=== PATIENT | male | born 1935 | race American Indian/Alaskan Native ===

== ENCOUNTER 2019-01-06 08:32 | Outpatient (CLI) | payer MEDICARE ==
[2019-01-06 09:39] LABS: Blood Urea Nitrogen 23 mg/dL (9-20)
--- NOTE | 2019-01-06 17:12 | Cat Scan Report ---
PROCEDURE: CT ABDOMEN PELVIS WO/W CON TECHNIQUE: Abdomen and pelvis with intravenous contrast HISTORY: PROSTATE CANCER COMPARISONS: FINDINGS: Few tiny calcified granuloma noted at the lung bases. No focal abnormalities seen within the liver parenchyma. No peripancreatic inflammatory changes are observed. Spleen is normal in size acute scattered calcifi cations noted. Kidneys demonstrate symmetric contrast enhancement. The adrenal glands are unremarkable. Abdominal aorta is normal in caliber. Multiple colonic diverticula are present. No acute adjacent inflammatory change The prostate is enlarged. 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 The appendix is identified and is unremarkable. IMPRESSION: Enlarged prostate Left hip prosthesis Colonic diverticula no evidence for acute diverticulitis. This document is electronically signed by Dain Lester MD., January 06 2019 05:10:48 PM ET
== END 2019-01-06 08:33 | disposition home or self-care (01) ==
LOC: CT 08:32
PROVIDERS: ATTEND Urology
DX: K57.30 Diverticulosis of large intestine without perforation or abscess without bleeding (principal); C61 Malignant neoplasm of prostate; I10 Essential (primary) hypertension; K21.9 Gastro-esophageal reflux disease without esophagitis
CPT/HCPCS: 36415; 74178; 82565; 84520; Q9967